=== PATIENT | female | born 1990 | race African-American/Black ===

== ENCOUNTER 2018-12-09 07:30 | Emergency (ER) | payer BC, OTHER ==
[2018-12-09] MEDS ORDERED: Dexamethasone 10 MG/ML VIAL ONE (08:10)
[2018-12-09] MEDS ORDERED: Acetaminophen 500 MG TAB ONE (08:10)
== END 2018-12-09 08:15 | disposition home or self-care (01) ==
LOC: SCSER 07:30
DX: J02.0 Streptococcal pharyngitis (principal)
CPT/HCPCS: 87430; 99283; J1100